=== PATIENT | male | born 1950 | race Caucasian/White ===

== ENCOUNTER 2018-04-21 14:45 | Inpatient (IN) | payer OTHER ==
[2018-04-21] VITALS (11 sets, daily range): BP systolic 116–134; BP diastolic 75–92
[~2018-04-21] VITALS: Ht 180.3 cm; Wt 95.2 kg
[2018-04-21 15:40] LABS: HEMOGLOBIN 15.8 G/DL (12.5-16.6); MCH 29.1 PG (29.0-34.0); MCHC 33.6 G/DL (30.0-36.0); MCV 86.6 FL (86-99); PLATELET COUNT 280 K/uL (156-360); RBC DIS.WIDTH-CV 13.4 % (11.8-14.6); RBC DIS.WIDTH-SD 42.1 % (39-53); RED BLOOD COUNT 5.43 M/uL (4.00-5.50); WHITE BLOOD COUNT 11.5 K/uL (4.1-10.2)
[2018-04-21 15:49] LABS: CHLORIDE 106 mEq/L (99-109); POTASSIUM 4.7 mEq/L (3.7-5.4); SODIUM 139 mEq/L (136-147)
[2018-04-21 15:51] LABS: GLUCOSE 129 mg/dL (70-99)
[2018-04-21 15:55] LABS: CREATININE 0.9 mg/dL (0.6-1.3); GFR ESTIMATE (CALCULATED) > 59 mL/min/ (58.99-99999)
[2018-04-21 15:56] LABS: UREA NITROGEN (BUN) 16 mg/dL (9-23)
[2018-04-21 16:03] LABS: TROP-I INTERPRETATION POSITIVE
[2018-04-21 20:40] LABS: CREATINE KINASE 123 IU/L (1-294); TOTAL CK 123 IU/L (1-294)
[2018-04-21 20:42] LABS: TROP-I INTERPRETATION POSITIVE
[2018-04-21 21:24] LABS: CK-MB 10.8 ng/mL (0.0-4.9); CKMB RELATIVE INDEX 8.8 (0.0-3.9)
[2018-04-22] VITALS (11 sets, daily range): BP systolic 83–151; BP diastolic 52–82
[2018-04-22 07:57] LABS: TROP-I INTERPRETATION POSITIVE; TROPONIN-I 0.74 ng/mL (0.0-0.30)
[2018-04-22 08:10] LABS: CHLORIDE 107 MEQ/L (99-109); CREATINE KINASE 109 IU/L (1-294); CREATININE 0.8 MG/DL (0.6-1.3); GFR ESTIMATE (CALCULATED) > 59 mL/min/ (58.99-99999); GLUCOSE 107 mg/dL (70-99); HDL CHOLESTEROL 35 MG/DL (Desirable>=40); LDL CHOLESTEROL 123 mg/dL (Desirable<100); NON-HDL CHOLESTEROL 148 mg/dL (Desirable<160); POTASSIUM 4.8 MEQ/L (3.7-5.4); SODIUM 139 MEQ/L (136-147); TOTAL CHOLESTEROL 183 mg/dL (Desirable<200); TOTAL CK 109 IU/L (1-294); TRIGLYCERIDES 127 MG/DL (Normal: <150); UREA NITROGEN (BUN) 13 mg/dL (9-23)
[2018-04-22 08:34] LABS: CK-MB 6.9 ng/mL (0.0-4.9); CKMB RELATIVE INDEX 6.3 (0.0-3.9)
[2018-04-22 10:08] LABS: HEMOGLOBIN A1c (GLYCOHEMOGLOB) 5.9 % (Below 5.7)
[2018-04-22 20:04] LABS: CREATINE KINASE 95 IU/L (1-294)
[2018-04-22 20:07] LABS: CK-MB 3.7 ng/mL (0.0-4.9)
[2018-04-22 20:10] LABS: TROP-I INTERPRETATION INDETERMINATE; TROPONIN-I 0.33 ng/mL (0.0-0.30)
[2018-04-22 20:12] LABS: CKMB RELATIVE INDEX 3.9 (0.0-3.9); TOTAL CK 95 IU/L (1-294)
[2018-04-23 04:30] VITALS: BP 112/78
[2018-04-23 07:20] VITALS: BP 147/85
[2018-04-23] MEDS ORDERED: PLAVIX75 MG PO (11:00)
[2018-04-23] MEDS ORDERED: ASPIR-LOW81 MG PO (11:00)
[2018-04-23] MEDS ORDERED: ATORVASTATIN CA40 MG PO (11:00)
[2018-04-23] MEDS ORDERED: LOPRESSOR25 MG PO (11:00)
[2018-04-23] MEDS ORDERED: NITROSTAT0.4 MG SL (11:00)
[2018-04-23] MEDS ORDERED: LISINOPRIL2.5 MG PO (11:02)
== END 2018-04-23 12:30 | disposition home or self-care (01) | DRG 282 ==
LOC: EME 14:45 → ENRESERV 16:56 → CATH 17:00 → ENRESERV 17:24 → 4WEST 18:08 → ENRESERV 04-22 17:08 → 4EAST 04-22 18:44
PROVIDERS: Internal Medicine Interventional Cardiology; Nurse Practitioner Family
DX: I21.19 ST elevation (STEMI) myocardial infarction involving other coronary artery of inferior wall (principal); I45.10 Unspecified right bundle-branch block; E78.5 Hyperlipidemia, unspecified; I25.10 Atherosclerotic heart disease of native coronary artery without angina pectoris; R09.02 Hypoxemia; I34.0 Nonrheumatic mitral (valve) insufficiency; R73.09 Other abnormal glucose
CPT/HCPCS: 71046; 80048; 80061; 82550; 82550 91; 82553; 83036; 83880; 84484; 85027; 85347; 87641; 93005; 94799; 99281; 99285; C1769; C1887; J1644; J2250; J3010; J3246; J7030